=== PATIENT | male | born 1990 ===

== ENCOUNTER → 2019-10-15 | Outpatient (CLI) | payer OTHER ==
--- NOTE | 2019-10-15 09:31 | MR ---
EXAMINATION TYPE: MR angio head wo con DATE OF EXAM: 10/15/2019 COMPARISON: NONE HISTORY: Migraines TECHNIQUE: Time of flight images focusing on the [place] of [place] were performed without contrast.. 2-D and 3-D postprocessing imaging is performed on independent workstation and reviewed. FINDINGS: There is codominant vertebrobasilar system. Vertebral arteries are patent to basilar juncti on. There are small caliber but patent bilateral posterior communicating arteries. No significant foc al stenosis or aneurysmal change is seen. Images of anterior circulation show patent anterior communicating artery. There is no significant foc al stenosis or aneurysmal change seen. IMPRESSION: No aneurysmal change at the level of the [place] of [place].
--- NOTE | 2019-10-15 09:46 | MR ---
EXAMINATION TYPE: MR brain wo con DATE OF EXAM: 10/15/2019 COMPARISON: NONE HISTORY: Migraines TECHNIQUE: Multiplanar, multisequence imaging of the brain and brainstem is performed without IV cont rast. FINDINGS: Diffusion weighted images demonstrate no evidence of a recent infarct or other diffusion abnormality. There is no extraaxial fluid collection or significant white matter signal abnormality. The ventricu lar system and cisternal spaces are normal in size and appearance. The brain volume is age appropria te. A few benign subcentimeter intraparotid lymph nodes incidentally noted bilaterally. Midline structures demonstrate normal morphology. The craniocervical junction appears within normal limits. Normal vascular flow voids are present. Perhaps mild mucosal thickening ethmoid sinuses bilat erally otherwise paranasal sinuses are clear. Globes are intact bilaterally. IMPRESSION: The source of migraine headaches not evident.
== END | disposition home or self-care (01) ==
LOC: RADMRIMAIN 08:56
PROVIDERS: ATTEND Psychiatry & Neurology Neurology
DX: G43.109 Migraine with aura, not intractable, without status migrainosus (principal)
CPT/HCPCS: 70544; 70551